=== PATIENT | male | born 1955 | race Caucasian/White ===

== ENCOUNTER → 2016-08-17 14:52 | Outpatient (CLI) | payer MEDICAID ==
[2014-10-15 16:50] VITALS: BMI 28.7
[~2016-08-17 14:52] MED LIST: ATIVAN2 MG/ML IV; AUGMENTIN 875-11 TAB PO; DOXYCYCLINE HY100 M2 PO; KLONOPIN0.5 MG PO; LAMICTAL100 MG PO; LITHIUM CARBON300 MG PO; ONDANSETRON4 MG/2 M3 IV; ZOFRAN4 MG PO
[2016-08-17 16:02] LABS: ALBUMIN 3.6 g/dL (3.4-5.0); BILIRUBIN - TOTAL 0.16 mg/dL (0.2-1.3); CALCIUM 8.7 mg/dL (8.5-10.1); CARBON DIOXIDE 27.5 mmol/L (21.0-32.0); CREATININE - SERUM 1.3 mg/dL (0.6-1.3); POTASSIUM - SERUM 4.5 mmol/L (3.5-5.1); PROTEIN - SERUM 7.1 g/dL (6.4-8.2); THYROID STIMULATING HORMONE 2.47 uIU/mL (0.36-3.74)
== END | disposition home or self-care (01) ==
LOC: D.LAB 08-12 14:15
PROVIDERS: Psychiatry & Neurology Psychiatry
DX: F31.9 Bipolar disorder, unspecified (principal); F90.9 Attention-deficit hyperactivity disorder, unspecified type

== ENCOUNTER 2018-12-01 11:47 | Emergency (ER) | payer SELFPAY ==
[~2018-12-01] VITALS: Ht 177.8 cm; Wt 84.1 kg
[2018-12-01 11:53] VITALS: Ht 177.8 cm; Wt 84.1 kg
[2018-12-01 12:36] LABS: BASOPHILS 0.3 % (0-2); EOSINOPHILS 2.1 % (0-7); HEMATOCRIT 35.3 % (42.0-54.0); HEMOGLOBIN 12.2 g/dL (13.5-17.5); IMMATURE GRANULOCYTES 0.1 % (0-5); LYMPHOCYTES 27.3 % (15-50); MCH 31.4 pg (26.0-34.0); MCHC 34.6 g/dL (31.0-37.0); MCV 90.7 fL (80.0-100.0); MEAN PLATELET VOLUME 9.1 fL (7.4-10.4); MONOCYTES 7.9 % (2-11); NEUTROPHILS 62.3 % (40-80); PLATELET COUNT 222 10x3/uL (130-400); RBC 3.89 10x6/uL (4.20-6.10); RDW 13.3 % (11.5-14.5); WBC 8.7 10x3/uL (4.8-10.8)
[2018-12-01 12:37] LABS: APPEARANCE CLEAR (CLEAR); BILIRUBIN NEGATIVE (NEGATIVE); COLOR YELLOW (YELLOW); GLUCOSE NEGATIVE (NEGATIVE); KETONE NEGATIVE (NEGATIVE); NITRITE NEGATIVE (NEGATIVE); PROTEIN NEGATIVE (NEGATIVE); UROBILINOGEN NORMAL (NORMAL)
[2018-12-01 12:49] LABS: UDS - AMPHET NEGATIVE QUAL (NEGATIVE); UDS - BARB NEGATIVE QUAL (NEGATIVE); UDS - BENZO NEGATIVE QUAL (NEGATIVE); UDS - COCAINE NEGATIVE QUAL (NEGATIVE); UDS - OPIATE NEGATIVE QUAL (NEGATIVE); UDS - PCP NEGATIVE QUAL (NEGATIVE); UDS - THC NEGATIVE QUAL (NEGATIVE)
[2018-12-01 12:50] LABS: LITHIUM 0.37 mmol/L (0.60-1.20); SALICYLATES 1.4 mg/dL (2.8-20.0)
[2018-12-01 12:54] LABS: ALBUMIN 3.7 g/dL (3.4-5.0); ANION GAP 11.6 mmol/L (8-16); BILIRUBIN - TOTAL 0.24 mg/dL (0.2-1.3); CALCIUM 8.8 mg/dL (8.5-10.1); CARBON DIOXIDE 25.9 mmol/L (21.0-32.0); CREATININE - SERUM 1.3 mg/dL (0.6-1.3); MAGNESIUM - SERUM 2.1 mg/dL (1.8-2.4); POTASSIUM - SERUM 3.5 mmol/L (3.5-5.1); PROTEIN - SERUM 6.5 g/dL (6.4-8.2)
--- NOTE | 2018-12-01 13:27 | NUR ---
DR. FRANKLIN NOTIFIED ANS 1:1 SITTER OBSERVATION ORDERED. SITTER AT BEDSIDE. NOTIFIED CHARGE NURSE AND ATTENDING IN REGARDS TO ASSESSMENT FINDINGS. RESOURCES GIVEN TP PT AND SAFETY PLAN INTITATED.
[2018-12-01 17:30] VITALS: BP 123/76
== END 2018-12-02 07:03 ==
LOC: D.ER 11:47
PROVIDERS: Family Medicine
DX: R45.851 Suicidal ideations (principal); F41.9 Anxiety disorder, unspecified